=== PATIENT | male | born 1965 ===

== ENCOUNTER 2020-11-01 03:57 | Emergency (ER) | payer BC ==
[2020-11-01 04:07] VITALS: TEMP 98.2
--- NOTE | 2020-11-01 04:35 | ED ---
Recheck HPI - General Chief Complaint: Recheck/Abnormal Lab/Rx Stated Complaint: covid swab Time Seen by Provider: 11/01/20 04:12 Source: patient Mode of arrival: ambulatory - History of Present Illness Initial Comments: Patient presents today for evaluation regarding need for coronavirus testing. Patient presents no symptoms but needs coronavirus testing and return to [facility], no significant medical history takes no medications and denies any complaints MD Complaint: other (Needs rogel testing) -: minutes(s) Returns Today for: Called Because of Abnormal Lab/Test Symptoms Since Prior Visit: no new symptoms Associated Symptoms: none Treatments Prior to Arrival: other (none) - Related Data Allergies Allergy/AdvReac Type Severity Reaction Status Date / Time No Known Allergies Allergy Verified 11/01/20 04:07 Review of Systems ROS Statement: Those systems with pertinent positive or pertinent negative responses have been documented in the HPI. ROS Other: All systems not noted in ROS Statement are negative. Past Medical History Past Medical History: Hypertension History of Any Multi-Drug Resistant Organisms: None Reported Past Surgical History: No Surgical Hx Reported Past Psychological History: No Psychological Hx Reported Smoking Status: Never smoker Past Alcohol Use History: None Reported Past Drug Use History: None Reported General Exam General appearance: alert, in no apparent distress Head exam: Present: atraumatic, normocephalic, normal inspection Eye exam: Present: normal appearance, PERRL, EOMI. Absent: scleral icterus, conjunctival injection, periorbital swelling ENT exam: Present: normal exam, mucous membranes moist Neck exam: Present: normal inspection. Absent: tenderness, meningismus, lymphadenopathy Respiratory exam: Present: normal lung sounds bilaterally. Absent: respiratory distress, wheezes, rales, rhonchi, stridor Cardiovascular Exam: Present: regular rate, normal rhythm, normal heart sounds. Absent: systolic murmur, diastolic murmur, rubs, gallop, clicks GI/Abdominal exam: Present: soft, normal bowel sounds. Absent: distended, tenderness, guarding, rebound, rigid Extremities exam: Present: normal inspection, full ROM, normal capillary refill. Absent: tenderness, pedal edema, joint swelling, calf tenderness Back exam: Present: normal inspection Neurological exam: Present: alert, oriented X3, CN II-XII intact Psychiatric exam: Present: normal affect, normal mood Skin exam: Present: warm, dry, intact, normal color. Absent: rash Course Vital Signs 11/01/20 11/01/20 04:03 04:53 Temperature 98.2 F Pulse Rate 79 Respiratory 19 18 Rate Blood Pressure 187/99 O2 Sat by Pulse 98 Oximetry - Reevaluation(s) Reevaluation #1: 11/01/20 05:42 Medical records reviewed Reevaluation #2: 11/01/20 05:43 Patient is informed of results, questions answered Medical Decision Making - Medical Decision Making 55 male to the emergency department for coronavirus testing. Test is negative patient can be discharged home Disposition Clinical Impression: Normal exam Disposition: HOME SELF-CARE Condition: Good Instructions (If sedation given, give patient instructions): Normal Exam (ED) Is patient prescribed a controlled substance at d/c from ED?: No Referrals: None,Stated [Primary Care Provider] - 1-2 days
[2020-11-01 04:54] VITALS: RESP 18
[2020-11-01 06:17] VITALS: BP 166/107; PULSE 69
== END 2020-11-01 06:03 | disposition home or self-care (01) ==
LOC: EC 03:57
DX: Z20.822 Contact with and (suspected) exposure to COVID-19 (principal); I10 Essential (primary) hypertension
CPT/HCPCS: 87635; 99282